=== PATIENT | male | born 1995 | race African-American/Black ===

== ENCOUNTER 2018-05-24 19:16 | Emergency (ER) | payer SELFPAY ==
[2018-05-24] MEDS ORDERED: Azithromycin 250 MG TAB ONE (21:03)
[2018-05-24] MEDS ORDERED: cefTRIAXone\\ROCEPHIN 250 MG VIAL ONE (21:03)
[2018-05-24] MEDS ORDERED: Lidocaine 1% PF 5 ML VIAL ONE (21:03)
[2018-05-27 01:45] LABS: Chlamydia by PCR Not Detected (NotDetected); GC by PCR Not Detected (NotDetected)
== END 2018-05-24 21:56 | disposition home or self-care (01) ==
LOC: ERS 19:16
DX: A64 Unspecified sexually transmitted disease (principal); B20 Human immunodeficiency virus [HIV] disease
CPT/HCPCS: 87491; 87591; 96372; J0696; J2001

== ENCOUNTER 2019-05-13 13:49 | Emergency (ER) | payer SELFPAY ==
[2019-05-13] MEDS ORDERED: Ketorolac Tromethamine 30 MG/ML VIAL ONE (15:50)
--- NOTE | 2019-05-14 08:07 | RAD ---
RADIOGRAPH LEFT SHOULDER 3VIEWS: DATE: 05/13/2019 HISTORY: 24-year-old male with acute left shoulder pain FINDINGS: There is no evidence of fracture or dislocation. There is no evidence of periostitis, permeative lesi on, osteolytic lesion, or osteoblastic lesion. The joint spaces are maintained without erosions or significant osteophytes. IMPRESSION: Normal
== END 2019-05-13 16:40 | disposition home or self-care (01) ==
LOC: ERS 13:49
DX: J06.9 Acute upper respiratory infection, unspecified (principal); F17.210 Nicotine dependence, cigarettes, uncomplicated; F41.9 Anxiety disorder, unspecified; I10 Essential (primary) hypertension; Z79.899 Other long term (current) drug therapy
CPT/HCPCS: 96372; J1885

== ENCOUNTER 2019-08-17 14:09 | Emergency (ER) | payer SELFPAY ==
[2019-08-17] MEDS ORDERED: cefTRIAXone\\ROCEPHIN 250 MG VIAL ONE (14:34)
[2019-08-17] MEDS ORDERED: Azithromycin 250 MG TAB ONE ×2 (14:34→14:42)
[2019-08-17] MEDS ORDERED: Lidocaine 1% (PF) 30 ML VIAL ONE (14:35)
[2019-08-17 14:47] LABS: Bilirubin Negative (Negative); Blood, Urine Negative (Negative); Clarity Clear (Clear); Glucose, Urine (Dipstick) Normal (Negative); Leukocyte Negative Leu/uL (Negative); Nitrite Negative (Negative); Protein, Urine (Dipstick) Negative (Neg-Trace); Urobilinogen Normal mg/dL (Less than 2)
[2019-08-18 22:13] LABS: Chlam.trachomatis by PCR,Urine Not Detected (NotDetected)
== END 2019-08-17 14:51 | disposition home or self-care (01) ==
LOC: ERS 14:09
DX: N34.2 Other urethritis (principal); B20 Human immunodeficiency virus [HIV] disease; I10 Essential (primary) hypertension; F41.9 Anxiety disorder, unspecified; F17.210 Nicotine dependence, cigarettes, uncomplicated
CPT/HCPCS: 81003; 87491; 87591; 96372; 99283; J0696; J2001

== ENCOUNTER 2020-03-05 12:13 | Emergency (ER) | payer SELFPAY ==
[2020-03-06 10:26] LABS: SARS-CoV-2 MS2 Positive; SARS-CoV-2 N Gene Positive; SARS-CoV-2 S Gene Positive; SARS-CoV-2 by NAA DETECTED (NotDetected); SARS-CoV-2 orf1ab Positive
== END 2020-03-05 12:22 | disposition home or self-care (01) ==
LOC: ERS 12:13
DX: U07.1 COVID-19 (principal); F17.200 Nicotine dependence, unspecified, uncomplicated
CPT/HCPCS: 87635; 99283; U0003

== ENCOUNTER 2022-08-30 02:32 | Emergency (ER) | payer SELFPAY ==
[2022-08-30] MEDS ORDERED: Haloperidol Lactate 5 MG/ML VIAL ONE (03:25)
[2022-08-30 04:32] LABS: #Monocytes 0.6 thou/uL (0.11-0.59); %Basophils 0.2 % (0.0-1.0); %Lymphocytes 19.2 % (21.0-51.0); %Monocytes 7.7 % (0.0-10.0); %Neutrophils 72.4 % (42.0-75.0); Hemoglobin 13.7 g/dL (14.0-18.0); Mean Corpuscular HGB CONC 34.7 g/dL (32.0-36.0); Mean Corpuscular Hemoglobin 30.3 pg (27.0-31.0); Mean Corpuscular Volume 87.4 fl (78.0-98.0); Mean Platelet Volume 9.1 fL (7.4-10.4); Platelet Count 248 10x3/uL (130-400); RBC Distribution Width 14.6 % (11.5-14.5); Red Blood Cell (RBC) Count 4.52 mill/uL (4.70-6.10); White Blood Cell (WBC) Count 8.3 10x3/uL (4.8-10.8)
[2022-08-30 04:54] LABS: ALT (SGPT) 21 U/L (8-55); AST (SGOT) 27 U/L (5-34); Albumin 4.2 g/dL (3.5-5.0); Alkaline Phosphatase 46 U/L (40-110); Anion Gap 15 mmol/L (10-20); BUN (Urea Nitrogen) 12 mg/dL (8.9-20.6); Bilirubin, Total 0.6 mg/dL (0.2-1.2); Calc. Creatinine Clearance 0 mL/min (70-130); Calcium 9.6 mg/dL (7.8-10.44); Carbon Dioxide 19 mmol/L (22-29); Chloride 105 mmol/L (98-107); Estimated GFR 81; Globulin 5.2 g/dL (2.4-3.5); Glucose 146 mg/dL (70-105); Lipase 17 U/L (8-78); Protein, Total 9.4 g/dL (6.0-8.3); Sodium 136 mmol/L (136-145)
== END 2022-08-30 06:05 | disposition home or self-care (01) ==
LOC: ERS 02:32
DX: R07.9 Chest pain, unspecified (principal); R11.2 Nausea with vomiting, unspecified; F12.10 Cannabis abuse, uncomplicated; F17.200 Nicotine dependence, unspecified, uncomplicated
CPT/HCPCS: 71045; 80053; 83690; 85025; 93005; 96360; 96372; J1630